=== PATIENT | female | born 1995 | race Caucasian/White ===

== ENCOUNTER 2017-12-29 22:13 | Emergency (ER) | payer BC ==
[~2017-12-29] VITALS: Ht 175.3 cm; Wt 119.0 kg
[2017-12-29 22:18] VITALS: BP 152/82; PULSE 90; RESP 16; TEMP 98.3; O2SAT 99
[2017-12-29] MEDS ORDERED: LEVO25TA4 PO (22:29)
[2017-12-29] MEDS ORDERED: MINO50CA PO (22:29)
--- NOTE | 2017-12-29 23:04 | PD ---
HPI Chief Complaint: Exposure to Blood/Body Fluids Time Seen by Provider: 22:45 Travel History International Travel<30 days: No Contact w/Intl Traveler<30days: No Traveled to known affect area: No History of Present Illness HPI 22yo F with no PMH presents to the ED requesting to get treated for chlamydia. Pt said the friend she had sexual intercourse with told her that someone else he had sexual intercourse with has chlamydia and that he is getting treated for it. Pt denies any complaints including fever, chest pain, sob, n/v, abdominal pain, vaginal discharge, vaginal bleeding, focal weakness or numbness. PFSH Past Medical History Medical other: Yes (ACNE) Thyroid Disease: Yes Tetanus Vaccination: < 5 Years Influenza Vaccination: Yes ?: Not LMP: 5-18 Social History Alcohol Use: No Tobacco Use: No Substance Use: No Allergies-Medications (Allergen,Severity, Reaction): Coded Allergies: No Known Allergies (Unverified , 12/29/17) Reported Meds & Prescriptions Reported Meds & Active Scripts Active Reported Minocycline (Minocycline HCl) 50 Mg Cap 50 Mg PO BID Levothyroxine (Levothyroxine Sodium) 25 Mcg Tab 25 Mcg PO DAILY Review of Systems Except as stated in HPI: all other systems reviewed are Neg Physical Exam Narrative GENERAL: 22yo F not in distress. SKIN: Focused skin assessment warm/dry. HEAD: Atraumatic. Normocephalic. EYES: Pupils equal and round. No scleral icterus. No injection or drainage. ENT: No nasal bleeding or discharge. Mucous membranes pink and moist. NECK: Trachea midline. No JVD. CARDIOVASCULAR: Regular rate and rhythm. No murmur appreciated. RESPIRATORY: No accessory muscle use. Clear to auscultation. Breath sounds equal bilaterally. GASTROINTESTINAL: Abdomen soft, non-tender, nondistended. MUSCULOSKELETAL: No obvious deformities. No clubbing. No cyanosis. No edema. NEUROLOGICAL: Awake and alert. No obvious cranial nerve deficits. Motor grossly within normal limits. Normal speech. PSYCHIATRIC: Appropriate mood and affect; insight and judgment normal. Data Data Last Documented VS Vital Signs Date Time Temp Pulse Resp B/P (MAP) Pulse Ox O2 Delivery O2 Flow Rate FiO2 12/29/17 22:18 98.3 90 16 152/82 (105) 99 Orders Orders Ed Urine Pregnancytest Poc (12/29/17 22:49) Gc And Chlamydia Pcr (12/29/17 22:49) Azithromycin Powd Pack (Zithromax Powd P (12/29/17 23:15) Ceftriaxone Inj (Rocephin Inj) (12/29/17 23:15) Lidocaine 1% Inj (50 Ml) (Xylocaine 1% I (12/29/17 23:15) MDM Medical Decision Making Medical Screen Exam Complete: Yes Emergency Medical Condition: Yes Differential Diagnosis Routine medical check up vs. possible chlamydia/gonorrhea Narrative Course 22yo F with no symptoms here requesting treatment for possible chlamydia. Urine negative. Sent chlamydia/gonorrhea in urine and pt empirically treated with ceftriaxone with lidocaine and azithromycin. Return precautions given. Diagnosis Primary Impression: STI (sexually transmitted infection) Departure Forms: Tests/Procedures Additional Instructions: Please follow up with your primary care physician. Please have your partner treated. Please do not have intercourse for 2 weeks. Return to the ED if symptoms worsen. Med/Other Pt SpecificInfo: No Change to Meds Disposition: 01 DISCHARGE HOME Condition: Stable Leslye Godoy DO Dec 29, 2017 23:04
[2017-12-29] MEDS ORDERED: AZITHROMYCIN PWD FOR SUSP 1 GM PACKET PO ONE (23:15)
[2017-12-29] MEDS ORDERED: LIDOCAINE HCL 1% 50 ML VIAL IM ONE (23:15)
[2017-12-29] MEDS ORDERED: cefTRIAXone 250 MG VIAL IM ONE (23:15)
[2017-12-29] MEDS ORDERED: LIDOCAINE HCL 1% PF 5 ML AMPULE ONE (23:26)
[2017-12-29] MEDS ORDERED: LIDOCAINE HCL 1% PF 5 ML AMPULE INFIL ONE (23:45)
[2017-12-30 00:15] VITALS: BP 167/72; PULSE 84; RESP 18; O2SAT 100
== END 2017-12-30 00:17 | disposition home or self-care (01) ==
LOC: EDBD 22:13 → PHEFT 22:13
DX: A64 Unspecified sexually transmitted disease (principal); E07.9 Disorder of thyroid, unspecified; Z79.899 Other long term (current) drug therapy
CPT/HCPCS: 84703; 87491; 87591; 96372; 99283; J0696